=== PATIENT | male | born 1960 | race Caucasian/White ===

== ENCOUNTER 2017-02-21 09:46 | Outpatient (CLI) | payer OTHER ==
[2017-02-21 10:34] LABS: eGFR (African) > 60; eGFR (Non-African) > 60
== END 2017-02-21 09:47 ==
LOC: LAB 09:46
PROVIDERS: ATTEND Family Medicine
DX: Z00.00 Encounter for general adult medical examination without abnormal findings (principal); Z12.5 Encounter for screening for malignant neoplasm of prostate
CPT/HCPCS: 36415; 80053; 80061; 83036; G0103

== ENCOUNTER 2017-03-21 09:32 | Day surgery (SDC) | payer OTHER ==
--- NOTE | 2017-03-21 12:52 | GI Report ---
REFERRING PHYSICIAN: Dr. Clotilde Lyn SUBSTATION DESIGNER: Nolan Hart MD PROCEDURE MEDICATION: Propofol as per anesthesia. INDICATIONS: This is a 56-year-old man who is referred for his first colonoscopy screening. He weighs 143 kilograms. PROCEDURE PERFORMED: Colonoscopy. PROCEDURE: An Olympus video colonoscope was advanced to the rectum. A very atonic redundant colon. It took a lot of maneuvering and changing positions, as well as two nurse compression to finally reach the base of the cecum. The appendiceal orifice and ileocecal valve seemed normal. On slow withdrawal, the cecum, ascending colon, and transverse colon were very redundant, but no obvious intraluminal lesions noted. Descending colon and sigmoid, again, very redundant, but no obvious intraluminal lesions noted. Retroflexion of the rectum was normal. Patient tolerated the procedure well. FINDINGS: 1. An atonic redundant colon to the cecum. 2. No obvious intraluminal lesions noted. RECOMMENDATIONS: 1. Would increase fiber in the diet. 2. Again, consider re-looking at his colon within 10 years, sooner if clinically indicated. cc: Dr. Clotilde VELA
== END 2017-03-21 09:33 ==
LOC: OPSURG 09:32
PROVIDERS: ATTEND Internal Medicine Gastroenterology
DX: Z12.11 Encounter for screening for malignant neoplasm of colon (principal); K59.8 Other specified functional intestinal disorders
CPT/HCPCS: 45378; J2001; J2704; J7120; S1016

== ENCOUNTER 2017-12-20 09:29 | Outpatient (CLI) | payer OTHER ==
[2017-12-20 10:30] LABS: eGFR (African) > 60; eGFR (Non-African) > 60
== END 2017-12-20 09:30 ==
LOC: LAB 09:29
PROVIDERS: ATTEND Family Medicine
DX: Z00.00 Encounter for general adult medical examination without abnormal findings (principal); Z12.5 Encounter for screening for malignant neoplasm of prostate
CPT/HCPCS: 36415; 80053; 80061; G0103

== ENCOUNTER 2018-12-25 16:07 | Outpatient (CLI) | payer OTHER ==
[2018-12-25 16:51] LABS: eGFR (Non-African) > 60
== END 2018-12-25 16:10 ==
LOC: LAB 16:07
PROVIDERS: ATTEND Family Medicine
DX: Z00.00 Encounter for general adult medical examination without abnormal findings (principal); Z12.5 Encounter for screening for malignant neoplasm of prostate
CPT/HCPCS: 36415; 80053; 80061; G0103

== ENCOUNTER 2019-01-31 11:40 | Outpatient (CLI) | payer OTHER ==
--- NOTE | 2019-01-31 18:58 | Diagnostic Imaging Report ---
CARMITA COLLAZO [facility] [address] [facility].[address] [id number] Report Submission Date: Jan 31, 2019 12:40:36 PM CDT Patient Study Name: IVETTE BRAVO Date: Jan 31, 2019 11:52:19 AM CDT Modality Type: DX Gender: M Description: FOOT 3 VIEWS OR MORE : 64 Institution: [facility] Physician: CARMITA COLLAZO Examination: Plain film left foot History: PLANTAR PAIN Findings: 3 weightbearing views of the left foot demonstrates normal cortical margins. No fracture or dislocation. No soft tissue swelling. Small inferior calcaneal spur. No joint effusion. Impression: No acute osseous process. Small inferior calcaneal spur. If suspected plantar fasciitis, consider obtaining MRI to further evaluate. Electronically signed on Jan 31, 2019 12:40:36 PM CDT by: Jason VELA
== END 2019-01-31 11:42 ==
LOC: RAD 11:40
PROVIDERS: ATTEND Podiatrist Foot & Ankle Surgery
DX: M77.32 Calcaneal spur, left foot (principal)
CPT/HCPCS: 73630

== ENCOUNTER 2019-02-08 10:17 | Outpatient (CLI) | payer OTHER ==
--- NOTE | 2019-02-13 14:59 | OP Clinic Progress Note ---
SUBJECTIVE: Gurdeep Perez is a 58-year-old male who presented to the clinic recently for left heel pain as well as posterior left heel small soft tissue bumps. We discussed the likelihood of plantar fasciitis and despite his significant efforts of stretching exercises 4+ times a day as well as several other conservative options he would like to go forward with surgery and I recommended last time that we try a couple other things first. I recommended that we do a heel injection which he was willing to do today. The patient is here for a steroid injection of the left heel plantar fascia area. The patient knows that we will continue to see how well he does with those bumps going away that I believe are due to inflammation or may be cystic in nature or a bursitis in nature on the back of the left heel as well. The patient wants to be able to be active in about 4 weeks from now and therefore I dont believe any sort of surgery is a good idea at this time. The patient does not admit to any fevers, chills, nausea, vomiting, shortness of breath or chest pain at this time. OBJECTIVE: Vitals: Temperature 97.0 degrees Fahrenheit, heart rate 89, respiration rate 18, blood pressure 145/89. Pain is 3/10. Vascular: 2+ DP and PT pulses, left foot. Capillary refill time is less than 3 seconds to the toes of the left foot. There is no edema noted, left foot. Dermatologic: There is no ecchymosis nor any erythema noted anywhere on the left foot or ankle area. There is mild hyperkeratosis diffusely on the bottom of the foot still, left foot. There are no open lesions or skin lesions noted. Musculoskeletal: There is no pain on palpation at the small 3 soft bumps on the back of his left heel. There is significant pain on palpation noted at the plantar medial calcaneal tubercle of the left heel. There is limited range of motion tested previously about the ankle joint with right dorsiflexion of the ankle at 0 degrees with the knee extended and increased to 5 to 7 degrees dorsiflexion with the knee flexed on the left leg on our previous exam. There are no other gross abnormalities noted, left foot. Again, there is no pain on the posterior heel with left ankle dorsiflexion with the knee extended, either. The soft 3 bumps on the posterior aspect of the left heel are very soft to the touch and do not feel encapsulated. There is no pain with palpation there. Neurologic: Light touch sensation is intact to the toes, left foot. Psychiatric: Mental status is grossly normal, and affect is normal. ASSESSMENT AND PLAN: 1. Plantar fasciitis, left foot; M72.2. 2. Gastrocnemius equinus of the left lower extremity; M21.6X2. 3. Soft tissue masses posterior left heel x3 (possible cysts versus bursitis). The risks and benefits of a left plantar heel steroid injection were discussed that include but are not limited to bleeding and infection. The patient understood and agreed to the injection, both written and verbal consent. The consent was signed and placed in the chart. PROCEDURE #1: Left plantar fascia steroid injection was performed today. An alcohol swab was utilized to clean the left plantar medial calcaneal tubercle area on the medial aspect of the heel. An injection consisting of 1 mL of 2% lidocaine plain, 1 mL of 0.5% Marcaine plain and 0.5 mL of dexamethasone 4 mg/mL and 0.5 mL of Kenalog 40 mg/mL were injected into the heel. The patient tolerated the procedure well. Mild bleeding was noted which was controlled with pressure. A Band-Aid was then applied. The patient wants to wait on any sort of boot to try and offload the posterior heel to give it time to get better. He wants to do more of the night splint that he is currently using. He is using it during the day when he rests. The patient will hold off on the boot and let us know if he decides to do it in the future. The patient tolerated the procedure well today. Return to the clinic in about 2-3 weeks for follow-up and to let us know how he is doing. He will let us know if he would like another injection and if so we will consider doing that after 1 month from now in the outpatient clinic again. Otherwise, he will continue with the stretching and night splints and see how he does with this injection. Gt SanchezP.M. (Dictated/Not Signed) Evon Job#: [id number] MTDD
== END 2019-02-08 10:19 ==
LOC: POD 10:17
PROVIDERS: ATTEND Podiatrist Foot & Ankle Surgery
DX: M72.2 Plantar fascial fibromatosis (principal); M21.6X2 Other acquired deformities of left foot
CPT/HCPCS: 20550; J1100; J2001; J3301; J3490; A4554